=== PATIENT | female | born 2000 | race Caucasian/White ===

== ENCOUNTER 2024-01-31 14:10 | Emergency (ER) | payer MEDICAID ==
[~2024-01-31] VITALS: Ht 160 cm; Wt 63.6 kg
--- NOTE | 2024-01-31 14:20 | NUR ---
PT TAKEN STRAIGHT TO TRIAGE OPEN CHECKING IN. PT IS WITH 2 FAMILY MEMBERS. CN ОЛЕГ AWARE OF THE PT AND MH STATUS. PT IS GOING TO ROOM 16
[2024-01-31 14:54] LABS: URINE HCG NEGATIVE (NEG)
[2024-01-31 15:03] LABS: URINE AMPHETAMINE SCREEN NEGATIVE (Neg); URINE BARBITUATE SCREEN NEGATIVE (Neg); URINE BENZODIAZEPINES SCREEN NEGATIVE (Neg); URINE CANNABINOID SCREEN POSITIVE (Neg); URINE COCAINE SCREEN NEGATIVE (Neg); URINE METHADONE SCREEN NEGATIVE (Neg); URINE OPIATE SCREEN NEGATIVE (Neg); URINE PHENCYCLIDINE SCREEN NEGATIVE (Neg)
[2024-01-31 15:14] LABS: BASOPHILS # (AUTO) 0.1 X10'3 (0-0.2); BASOPHILS % (AUTO) 0.5 % (0-1); EOSINOPHILS # (AUTO) 0.1 X10'3 (0-0.9); EOSINOPHILS % (AUTO) 1.1 % (0-6); HEMATOCRIT 41.9 % (35.0-45.0); HEMOGLOBIN 14.1 g/dl (12.0-16.0); LYMPHOCYTES # (AUTO) 2.3 X10'3 (1.1-4.8); LYMPHOCYTES % (AUTO) 19.7 % (21-51); MEAN CORPUSCULAR HEMOGLOBIN 30.7 PG (27.0-31.0); MEAN CORPUSCULAR HGB CONC 33.7 g/dL (33.0-36.5); MEAN CORPUSCULAR VOLUME 91.2 FL (78-98); MEAN PLATELET VOLUME 9.4 FL (7.4-10.4); MONOCYTES # (AUTO) 0.6 X10'3 (0-0.9); MONOCYTES % (AUTO) 5.1 % (2-12); NEUTROPHILS # (AUTO) 8.7 X10'3 (1.8-7.7); NEUTROPHILS % (AUTO) 73.6 % (42-75); PLATELET COUNT 323 X10'3 (140-440); RED BLOOD COUNT 4.59 X10'6 (4.20-5.60); WHITE BLOOD COUNT 11.8 X10'3 (4.5-11.0)
--- NOTE | 2024-01-31 15:25 | NUR ---
PT'S JEWELRY; YELLOW CHAIN NECKLASS, 2 RINGS AND A PAIR OF EARINGS AND HER DIE CUTTER OPERATOR WAS GIVEN TO PT'S AUNT JESUS TO TAKE HOME.
[2024-01-31 15:27] LABS: ALBUMIN 4.3 G/DL (3.4-5.0); ANION GAP 11 (8-16); BLOOD UREA NITROGEN 8 MG/DL (7-18); BUN/CREATININE RATIO 9.4 (10.0-20.0); CHLORIDE 107 MMOL/L (99-107); CREATININE 0.85 MG/DL (0.40-0.90); GLUCOSE 108 MG/DL (70-104); POTASSIUM 3.6 MMOL/L (3.5-5.1); SODIUM 140 MMOL/L (135-145); TOTAL CARBON DIOXIDE 21.6 MMOL/L (24-32); eCRCL 84 ML/MIN; eGFR 82 ML/MIN
[2024-01-31] MEDS: OLANZapine **IM** 10 mg inj. IM ONE (15:30)
[2024-01-31 15:45] LABS: ETHANOL < 10 MG/DL (<10)
--- NOTE | 2024-01-31 17:41 | NUR ---
PT PROVIDED WITH MEAL TRAY, SITTING UP EATING COMFORTABLY IN BED
--- NOTE | 2024-01-31 19:59 | NUR ---
1:1 Interview with patient at bedside. Patient reported to have been manic on arrival. The patient does not have much of a recall about being that way. The patient had been administered IM Zyprexa in the main ER. The patient tells this conventional mortgage underwriter that she has a history of cutting herself in the past and also PTSD. She states she sees the number 111, she looked this up on the internet, she found out that this her anat number. The patient states she has not been sleeping well lately. The patient smokes and vapes tobacco. There is a history of poly drug use. Patient primarily uses THC, she also drinks vodka and whiskey when she can. The patient denies S/I, H/I or any hallucinations. This conventional mortgage underwriter will watch for increasing psychosis. A packet will be sent to [facility] and she will be evaluated in the am.
--- NOTE | 2024-01-31 20:12 | NUR ---
This patient is now eating her sandwich, she stuff's bread in her mouth, she does not swallow. She tells this writer producer that she is soaking up the alcohol up in her body with the bread. The patient is also patting the bread on her face. Psychosis looks to be increasing. This writer producer will address with the ER MD.
[2024-01-31] MEDS: OLANZapine 5mg rapidly disint. tablet PO ONE (20:49)
[2024-01-31] MEDS: diphenhydrAMINE 25mg capsule PO ONE (20:50)
--- NOTE | 2024-01-31 20:54 | NUR ---
Patient up to bathroom to void. She ambulates well.
--- NOTE | 2024-01-31 20:55 | NUR ---
Patient complied with taking Zyprexa Zydis and PO Benadryl. She is now resting on her right side in bed. She hopes to sleep.
--- NOTE | 2024-01-31 21:18 | NUR ---
Patient sleeping quietly. Good color. Regular resp.
--- NOTE | 2024-01-31 22:15 | NUR ---
Patient continues to sleep. No distress. In view from nurses station.
--- NOTE | 2024-01-31 23:05 | NUR ---
Patient has changed position on her bed. Her head is resting at the foot of the bed. She sleeps quietly.
--- NOTE | 2024-02-01 04:01 | NUR ---
Patient awoke and requested when coffee would be served. Patient was advised at 0800. The patient exhibited understanding and returned to sleep.
--- NOTE | 2024-02-01 05:50 | NUR ---
Patricia, this patients Aunt. . She would like updates if possible.
--- NOTE | 2024-02-01 06:27 | NUR ---
Patient sitting up in bed, she is doing her hair. No distress.
[2024-02-01] MEDS ORDERED: diphenhydrAMINE 25mg capsule PO ONE (07:25)
[2024-02-01] MEDS ORDERED: LORazepam 1 MG tablet PO ONE (07:25)
--- NOTE | 2024-02-01 07:29 | NUR ---
PATIENT PACING AROUND ROOM, [place] AT BEDSIDE TO DO FACE TO FACE.
[2024-02-01] MEDS: diphenhydrAMINE 25mg capsule PO ONE (07:50)
[2024-02-01] MEDS: LORazepam 1 MG tablet PO ONE (07:50)
[2024-02-01] MEDS ORDERED: OLANZapine 2.5MG tablet PO SCH (08:00)
[2024-02-01 08:02] LABS: BILIRUBIN,URINE SMALL (Neg); CLARITY,URINE CLOUDY (Clear); COLOR,URINE YELLOW (Yellow); GLUCOSE, URINE NEGATIVE (Neg); KETONES,URINE >=80 mg/dl (Neg); LEUKOCYTE ESTERASE ,URINE NEGATIVE (Neg); NITRITES, URINE NEGATIVE (Neg); OCCULT BLOOD,URINE NEGATIVE (Neg); PROTEIN,URINE TRACE mg/dl (Neg); UROBILINOGEN,URINE 0.2 E.U/dL (0.2-1.0)
[2024-02-01 08:03] LABS: UA COLLECTION TYPE CLN CATCH MIDSTREAM
[2024-02-01 08:21] LABS: MUCUS STRANDS MODERATE /LPF (Neg); SQUAMOUS EPITHELIAL CELL,UR MANY /LPF (FEW)
[2024-02-01 08:23] LABS: BACTERIA,URINE 3+ /HPF (Neg); CAL OXALATE CRYSTALS 4+ /HPF (NEGATIVE)
[2024-02-01 08:25] LABS: WBC,URINE 0-4 /HPF (0-4)
--- NOTE | 2024-02-01 08:57 | NUR ---
SIRISHA MORALES ON PHONE STATING SHE IS PATIENT'S MOTHER. WHEN PATIENT ASKED IF SHE WANTED TO SPEAK WITH MOTHER PATIENT REPLIES, "MY MOTHER IS ." SIRISHA NOT ON PT DEMOGRAPHIC DATA. UNABLE TO SPEAK TO SIRISHA DUE TO THIS. PATIENT AGREES TO SPEAK WITH SIRISHA ON THE PHONE AND WHEN SHE PICKS UP PHONE SHE STATES, "WHATS UP MOM". PATIENT HAS ODD BEHAVIOR SUCH STATING TO THIS NURSE "I CANNOT UNDERSTAND YOU, I CAN SEE YOUR MOUTH MOVE BUT I CANNOT UNDERSTAND WHAT YOUR SAYING. I CAN UNDERSTAND WHAT YOURE SAYING WHEN YOUR MOUTH IS NOT MOVING." WHEN PATIENT SPEAKING WITH SIRISHA ON PHONE PATIENT BECAME VERY AGITATED AND SPEAKING LOUDLY ON UNIT. ATTEMPT MADE TO REDIRECT PATIENT TO SPEAK QUIETER AND VERBAL WARNING GIVEN TO HAVE PATIENT DISCONTINUE PHONE CONVO IF AGITATION INCREASED. PATIENT COMPLIANT.
--- NOTE | 2024-02-01 10:00 | NUR ---
PATIENT ASLEEP. RESTING WITH RESPIRATIONS EVEN AND UNLABORED.
--- NOTE | 2024-02-01 11:00 | NUR ---
PATIENT ASLEEP. RESTING WITH RESPIRATIONS EVEN AND UNLABORED.
--- NOTE | 2024-02-01 12:00 | NUR ---
PATIENT ASLEEP. RESTING WITH RESPIRATIONS EVEN AND UNLABORED.
--- NOTE | 2024-02-01 13:00 | NUR ---
PATIENT ASLEEP. RESTING WITH RESPIRATIONS EVEN AND UNLABORED.
--- NOTE | 2024-02-01 13:26 | NUR ---
UP TO BATHROOM. NO COMPLAINTS OR REQUESTS.
--- NOTE | 2024-02-01 14:26 | NUR ---
PATIENT AWAKE AND CALM. PLAYING WITH HAIR.
--- NOTE | 2024-02-01 16:14 | NUR ---
1526: PATIENT UP TO BATHROOM SEVERAL TIMES. NOTED TO STICK HAND IN THROAT IN ATTEMPT TO THROW UP. NO VOMIT NOTED. GAG SOUNDS HEARD FROM PATIENT BATHROOM. UNKNOWN IF PATIENT HAS EATING DISORDER.
--- NOTE | 2024-02-01 16:48 | NUR ---
PROVIDED WITH BATHING MATERIALS FOR BIRD BATH. PATIENT VERY EXCITED AND COOPERATIVE.
--- NOTE | 2024-02-01 17:23 | NUR ---
PATIENT FINISHED TAKING SINK BATH. NEW SCRUBS PROVIDED. NEW BEDDING PLACED. FLOOR AND BEDSIDE TABLE CLEANED. PATIENT CALM AND COOPERATIVE.
[2024-02-01] MEDS ORDERED: NO HOME MEDS (18:50)
--- NOTE | 2024-02-01 18:55 | NUR ---
One to one with the patient to assess severity of mood symptoms. The patient presents as guarded and gave brief replies. She denies problems. She denies thoughts to harm herself or others. When asked if she was having any difficulty voiding she replied, "There is no problems with my private parts and I'd rather not talk about it"
--- NOTE | 2024-02-01 19:06 | NUR ---
The patient has been accepted at [facility]. She will be picked up tomorrow am for transport by [facility]. NURSE TO NURSE WITH BRIDGET IN THE AM [phone]
--- NOTE | 2024-02-01 20:05 | NUR ---
The patient's behavior is very odd. She is standing against the wall face first and looking up at the ceiling. She appears to be responding to internal stimuli. She has been offered medications numerous times but is refusing.
--- NOTE | 2024-02-01 20:48 | NUR ---
The patient with a wide eyed gaze. Behavior is odd.
--- NOTE | 2024-02-01 20:56 | NUR ---
The patient is twirling around with her arms straight up in the air with a wide eyed gaze. She has repeatedly refused PO HS medications.
[2024-02-01] MEDS: diphenhydrAMINE 25mg capsule PO PRN (21:13)
[2024-02-01] MEDS: olanzapine 10mg tablet PO SCH (21:13)
[2024-02-01] MEDS: LORazepam 1 MG tablet PO PRN (21:13)
--- NOTE | 2024-02-01 21:29 | NUR ---
The patient did take PO medications. She is sitting on her bed with a towell on her head
--- NOTE | 2024-02-01 22:02 | NUR ---
The patient up to use the bathroom
--- NOTE | 2024-02-01 23:02 | NUR ---
The patient appears to be sleeping
--- NOTE | 2024-02-02 00:39 | NUR ---
The patient appears to be sleeping
--- NOTE | 2024-02-02 01:58 | NUR ---
The patient appears to be sleeping
--- NOTE | 2024-02-02 03:45 | NUR ---
The patient appears to be sleeping
--- NOTE | 2024-02-02 04:59 | NUR ---
The patient appears to be sleeping
[2024-02-02 05:50] VITALS: BP 98/62; PULSE 97; RESP 18; O2SAT 99
--- NOTE | 2024-02-02 06:49 | NUR ---
Patient has been up several times to use the restroom; appears to be restless as she continuously moves around in bed.
[2024-02-02] MEDS: OLANZapine **IM** 10 mg inj. IM ONE (07:20)
[2024-02-02] MEDS: diphenhydrAMINE 50 mg/ml inj IM ONE (07:20)
[2024-02-02] MEDS: LORazepam 2 mg/ml vial IM ONE (07:20)
--- NOTE | 2024-02-02 07:21 | NUR ---
Patient came out of the restroom and started tossing things around in her room and punching the bed. Patient was offered her AM medication but refused, stating, "I'm never taking those medications again." Security was called for a stand by as she continued to express her agitation. RN from ER also attempted to provide PO medication but patient requested IM medication. Orders received from MD Helena for Ativan 1mg IM, Zyprexa 5mg IM and Benadryl 25mg IM. Patient received medications with security dixon without issue.
--- NOTE | 2024-02-02 09:19 | NUR ---
Patient discharged with belongings. She is being transported to [place] by [facility]. Patient changed into personal clothing and escorted out by security. She was pleasant and cooperative and appeared in happy mood.
[2024-02-02 09:24] VITALS: TEMP 98.1
== END 2024-02-02 09:16 ==
LOC: ER 14:11
DX: F23 Brief psychotic disorder (principal); Z20.822 Contact with and (suspected) exposure to COVID-19
CPT/HCPCS: 36415; 80048; 80305; 80320; 81001; 81025; 85025; 87811; 96372; 99285; J1200; J2060; J3490; Q0163; 99284

== ENCOUNTER → 2025-03-19 | Emergency (ER) | payer MEDICAID ==
[~2025-03-19] VITALS: Ht 157.5 cm; Wt 57.2 kg
[~2025-03-19] MED LIST: NO HOME MEDS
[2025-03-19 19:47] VITALS: BP 116/76; PULSE 92; RESP 16; TEMP 99.1; O2SAT 99
--- NOTE | 2025-03-19 20:06 | Physician Documentation ---
History of Present Illness ~ Stated Complaint: N/V Time Seen by MD: 19:56 Source: patient, RN/ HPI Patient is seen today with complaints of nausea and vomiting for the last few days. Patient does admit to smoking copious amounts of marijuana. She denies any fever or chills or chest pain or shortness of breath or abdominal pain. She has no other concern or complaint at this time. Medication Reconciliation Allergies: Coded Allergies: No Known Allergies (Unverified , 01/31/24) Miscellaneous Medications Home Med List (No Home Medications), (Reported) Review of Systems Constitutional: Denies: chills, fever, weakness Eyes: Denies: pain, blurred vision ENT: Denies: ear pain, nose pain, throat pain, mouth pain Respiratory: Denies: cough, shortness of breath Cardiovascular: Denies: chest pain, palpitations Gastrointestinal: Denies: abdominal pain, nausea, vomiting Genitourinary: Denies: burning, dysuria Female Genitalia: Denies: vaginal discharge, pelvic pain Neurological: Denies: headache, dizziness Musculoskeletal: Denies: pain, swelling Integumentary: Denies: rash, lesions Allergic/Immunologic: Denies: hives, itching Hematologic/Lymphatic: Denies: no symptoms reported Psychiatric: Denies: depression, anxiety Physical Exam Physical Exam General: Awake and Alert, no acute distress. HEENT: Conjunctiva pink, Sclera clear, Mucus Membranes moist. Neck: Supple without masses and tenderness. Resp: Unlabored. Lungs clear to auscultation bilaterally. Abdomen: Soft and non tender no organomegaly Extremities: No cyanosis,clubbing or edema. Skin: Warm and Dry. Medical Decision Making Additional information obtaine: N/A Findings Patient is seen today with complaints of nausea and vomiting for the last few days. Patient does admit to smoking copious amounts of marijuana. She denies any fever or chills or chest pain or shortness of breath or abdominal pain. She has no other concern or complaint at this time. Patient likely has cannabinoid hyperemesis syndrome. I did see patient in triage and patient left shortly thereafter. I recommend patient discontinue smoking of marijuana or THC products. Return to ED with any worsening, concerning or changing symptoms. Patient left prior to any treatment being given. Diff Dx GI Bleed:Consideration: Include: Gastritis Diff Dx Pain:Considerations: Include: Cholelithasis Diff Dx N/V/D:Considerations: Include: Diarrhea - viral, Gastroenteritis, GE reflux Diff Dx Rectal:Considerations: Unlikely: Fissure, Fistula, Foreign body, Im paction, Perirectal abscess, Rectal prolapse, Subcutaneous abscess, Thrombosed hemorrhoid, Ulcer, UTI, Other Departure Disposition: HOME / SELF CARE / HOMELESS Impression: Primary Impression: Cannabinoid hyperemesis syndrome Condition: Stable Additional Instructions: Patient likely has cannabinoid hyperemesis syndrome. I did see patient in triage and patient left shortly thereafter. I recommend patient discontinue smoking of marijuana or THC products. Return to ED with any worsening, concerning or changing symptoms. Patient left prior to any treatment being given. Referrals: NO PRIMARY CARE PROVIDER (PCP) Signature Scribe Signature: No scribe Attestation: No scribe WILLIAM HOUSER PAC Mar 19, 2025 20:06
== END | disposition home or self-care (01) ==
LOC: ER 19:31
DX: R11.16 Cannabis hyperemesis syndrome (principal); F12.90 Cannabis use, unspecified, uncomplicated; F17.200 Nicotine dependence, unspecified, uncomplicated
CPT/HCPCS: 99282

== ENCOUNTER 2025-03-21 01:33 | Emergency (ER) | payer MEDICAID | END 2025-03-21 01:55 | disposition left against medical advice (07) | LOC: ER 01:34 | DX: R10.9 Unspecified abdominal pain (principal); Z53.21 Procedure and treatment not carried out due to patient leaving prior to being seen by health care provider | CPT/HCPCS: C1729 ==